=== PATIENT | male | born 1950 | race Caucasian/White ===

== ENCOUNTER → 2025-09-24 09:03 | Outpatient (CLI) | payer MEDICARE, BC, SELFPAY ==
[2025-09-24 10:09] LABS: Hematocrit 41.5 % (41-53); Hemoglobin 13.8 g/dL (13.5-17.5); Mean Corpuscular HGB Conc 33.2 % (30-36); Mean Corpuscular Hemoglobin 28.4 PG (26-34); Mean Corpuscular Volume 85.5 fL (80-100); Platelet Count 219 X10^3/uL (150-400)
[2025-09-24 10:30] LABS: Alanine Aminotransferase 14 IU/L (<50); Albumin 3.8 g/dL (3.5-5.0); Albumin Globulin Ratio 1.2 (1.0-2.8); Alkaline Phosphatase 106 U/L (38-126); Blood Urea Nitrogen 10 mg/dL (9-20); Calcium 8.8 mg/dL (8.4-10.2); Carbon Dioxide 25 mmol/L (22-32); Chloride 108 mmol/L (98-107); Cholesterol 136 mg/dL (140-199); Estimated Glomerular Filt Rate > 60 mL/min (>60); Globulin 3.1 g/dL (1.7-4.1); Glucose 97 mg/dL (70-99); HDL Cholesterol 56 mg/dL (40-60); HEMOLYSIS 18 (0-50); Potassium 5.1 mmol/L (3.4-5.1); Sodium 140 mmol/L (137-145); Total Protein 6.9 g/dL (6.3-8.2); Triglycerides 59 mg/dL (35-150)
[2025-09-24 10:52] LABS: TSH w/ Reflex to FT4 2.53 uIU/mL (0.47-4.68)
== END ==
PROVIDERS: PCP Family Medicine; Referring Provider Family Medicine; Visit Provider Registered Nurse Diabetes Educator
DX: Z00.00 Encounter for general adult medical examination without abnormal findings (principal); Z12.5 Encounter for screening for malignant neoplasm of prostate; R35.1 Nocturia; N40.1 Benign prostatic hyperplasia with lower urinary tract symptoms
CPT/HCPCS: 36415; 80053; 80061; 84443; 85027; G0103

== ENCOUNTER → 2025-10-10 08:34 | Outpatient (CLI) | payer MEDICARE, BC, SELFPAY ==
--- NOTE | 2025-10-10 08:36 | DI.US.S_ITS ---
PROCEDURE: US SOFT TISSUE HEAD AND NECK INDICATIONS: eval prob lipoma L posterior/superior neck/base of occiput TECHNIQUE: Real-time scanning was performed of the neck region of interest, with image documentation. COMPARISON: None. FINDINGS: In the occipital region of palpable lump, there is a subcutaneous ovoid mass, isoechoic to adjacent subcutaneous fat measuring 2.8 x 0.6 x 3.4 cm. Demonstrates good definition and through transmission. No internal vascular flow. IMPRESSION: Benign-appearing lipoma corresponds to the palpable lump. Dictated by: Belkis Moran M.D. on 10/10/2025 at 13:38 Approved by: Belkis Moran M.D. on 10/10/2025 at 13:40
--- NOTE | 2025-10-10 08:37 | DI.US.S_ITS ---
PROCEDURE: US ABDOMEN LIMITED INDICATIONS: PROMINENCE AT XIPHOID; LEFT POST/SUP NECK PALPABLE TECHNIQUE: Real-time focused scanning was performed of the abdominal wall, with image documentation. COMPARISON: None. FINDINGS: In the area of palpable finding of the xiphoid process, there is normal tissue overlying the outwardly deflected xiphoid. IMPRESSION: No sonographic abnormalities. Dictated by: Belkis Moran M.D. on 10/10/2025 at 13:40 Approved by: Belkis Moran M.D. on 10/10/2025 at 13:42
== END ==
LOC: US 08:36
PROVIDERS: PCP Family Medicine; Referring Provider Registered Nurse Diabetes Educator; Visit Provider Registered Nurse Diabetes Educator
DX: M79.89 Other specified soft tissue disorders (principal); D17.0 Benign lipomatous neoplasm of skin and subcutaneous tissue of head, face and neck
CPT/HCPCS: 76536; 76705